=== PATIENT | female | born 1975 | race African-American/Black ===

== ENCOUNTER 2018-03-19 16:13 | Emergency (ER) | payer MEDICAID ==
[~2018-03-19] VITALS: Ht 167.6 cm; Wt 65.0 kg
[2018-03-19] MEDS ORDERED: SODIUM CHLORIDE 0.9% 1,000 ML IV ONE (17:03)
[2018-03-19 17:34] LABS: BASOPHILS % 0.6 % (0.0-2.0); EOSINOPHILS % 1.3 % (0.0-5.0); HEMATOCRIT. 34.9 % (36.0-48.0); HEMOGLOBIN. 10.9 g/dL (12.0-16.0); LYMPHOCYTES % 49.6 % (20.0-50.0); MEAN CORPUSCULAR HEMOGLOBIN 22.3 pg (28.0-32.0); MEAN CORPUSCULAR VOLUME 71.4 fL (81.0-99.0); MEAN PLATELET VOLUME 8.8 fl (7.4-10.4); MONOCYTES % 12.3 % (2.0-8.0); NEUTROPHILS % 36.2 % (40.0-76.0); PLATELET 285 x1000/uL (130-400); RED BLOOD CELL COUNT 4.89 mill/uL (4.2-5.4); RED CELL DISTRIBUTION WIDTH 20.1 % (11.6-14.6)
[2018-03-19 17:37] LABS: CHLORIDE 111 mEq/L (98-107)
[2018-03-19 17:45] LABS: HCG SCREEN NEGATIVE
[2018-03-19 20:25] VITALS: BP 105/66
== END 2018-03-19 20:26 | disposition home or self-care (01) ==
LOC: ER 16:13
DX: D50.9 Iron deficiency anemia, unspecified (principal); R07.9 Chest pain, unspecified; F17.210 Nicotine dependence, cigarettes, uncomplicated
CPT/HCPCS: 36415; 71045; 80053; 83605; 83690; 83880; 84484; 84703; 85025; 93005; 99285; 99406; J7030; Z7610

== ENCOUNTER 2021-03-31 09:31 | Emergency (ER) | payer OTHER, MEDICAID ==
[~2021-03-31] VITALS: Ht 167.6 cm; Wt 84.0 kg
[2021-03-31 10:03] VITALS: BP 133/89
== END 2021-03-31 10:11 | disposition home or self-care (01) ==
LOC: ER 09:31
DX: M67.441 Ganglion, right hand (principal)
CPT/HCPCS: 99281

== ENCOUNTER 2021-12-16 14:34 | Emergency (ER) | payer OTHER, MEDICAID ==
[~2021-12-16] VITALS: Ht 167.6 cm; Wt 78.0 kg
[2021-12-16] MEDS ORDERED: ACETAMINOPHEN WITH CODEINE 300/30MG TABLET PO ONE (15:00)
[2021-12-16] MEDS ORDERED: IBUP-2030 MT ×3 (15:41→15:42)
[2021-12-16 15:43] VITALS: BP 132/76
== END 2021-12-16 16:30 | disposition home or self-care (01) ==
LOC: ER 15:30
DX: S90.32XA Contusion of left foot, initial encounter (principal); W20.8XXA Other cause of strike by thrown, projected or falling object, initial encounter; Y93.89 Activity, other specified; Y92.512 Supermarket, store or market as the place of occurrence of the external cause
CPT/HCPCS: 73630; 81025; 99283

== ENCOUNTER → 2022-02-28 | Emergency (ER) | payer OTHER, MEDICAID ==
[~2022-02-28] VITALS: Ht 167.6 cm; Wt 88.0 kg
[~2022-02-28] MED LIST: IBUP-2030 MT; IBUPROFEN 600MG TABLET PO ONE
[2022-02-28 18:05] VITALS: BP 112/78
== END ==
LOC: ER 15:23
DX: M79.18 Myalgia, other site (principal); D64.9 Anemia, unspecified
CPT/HCPCS: 73502; 73562; 99284